=== PATIENT | male | born 1995 | race Caucasian/White ===

== ENCOUNTER 2023-12-23 07:52 | Day surgery (SDC) | payer OTHER, SELFPAY ==
[2023-12-23] VITALS (8 sets, daily range): BP systolic 89–126; BP diastolic 49–85; PULSE 48–64; RESP 12–18; TEMP 36.2–37.1; O2SAT 96–100
--- NOTE | 2023-12-23 | PATH_ITS ---
[facility] Accession Number: [id number] No. of containers..03 Tissue . 01 Material submitted: . PART A: small bowel - SMALL BOWEL PART B: gastrointestinal site - STOMACH PART C: colon - RANDOM BIOPSIES COLON . 01 Diagnosis: Part A: SMALL BOWEL: Small bowel mucosa with no diagnostic alterations. No active inflammation and no evidence of celiac disease. . Part B: STOMACH: Gastric mucosa with mild chronic inflammation. No Helicobacter organisms identified. No intestinal metaplasia, dysplasia, or malignancy identified. . Part C: RANDOM BIOPSIES COLON: Colonic mucosa with no diagnostic alterations. No active inflammation, granulomas, dysplasia, or malignancy identified. No evidence of colitis. [facility] 12/28/20231640 Local . 01 Electronically signed: . Raphael Louie MD, Pathologist NPI- [id number] . 01 Gross description: . A. Received in formalin with two patient identifiers and small bowel, are two bailey soft tissue fragments, 0.3 to 0.5 cm in greatest dimension. Submitted in A1. . B. Received in formalin with two patient identifiers and stomach, are three bailey soft tissue fragments, 0.3 to 0.4 cm in greatest dimension. Submitted in B1. . C. Received in formalin with two patient identifiers and random colon biopsies, are four bailey soft tissue fragments, 0.3 to 0.4 cm in greatest dimension. Submitted in C1. ([id number]) /MRV 12/28/20231640 Local . 01 Microscopic: . Part B: STOMACH: An immunohistochemical stain was performed to evaluate for Helicobacter organisms and is negative. The control stains appropriately. * This test was developed and its performance characteristics determined by [facility]. It has not been cleared or approved by the [place]. Food and Drug Administration. The FDA has determined that such clearance or approval is not necessary. This test is used for clinical purposes. It should not be regarded as investigational or for research. . 01 Pathologist provided ICD-10: K29.50 . 01 CPT . 937897, 484587, 631234, [id number] Specimen Comment: A courtesy copy of this report has been sent to [phone] Performed at: [address] [facility] [address], [place], [place] [id number] MD Raphael Louie MD Phone: [phone]
[2023-12-23] MEDS: LACTATED RINGERS 1,000 ML 42 ML IV (08:23)
--- NOTE | 2023-12-23 08:33 | PM.HP.1 ---
History of Present Illness History of Present Illness Chief complaint: EGD & Colonoscopy w/poss bx's Narrative: Diarrhea, abdominal discomfort, GE reflux PFSH Social History Smoking Status: Never smoker Meds Home Medications and Allergies Home Medications Medication Instructions Recorded Confirmed Type fluoxetine 40 mg capsule 40 mg PO DAILY 12/23/23 12/23/23 History omeprazole 20 mg capsule,delayed 20 mg PO BID 12/23/23 12/23/23 History release Allergies Allergy/AdvReac Type Severity Reaction Status Date / Time No Known Drug Allergies Allergy Verified 12/23/23 08:06 Exam Vital Signs (past 8 hours): - 12/23/23 08:05 Temperature 97.1 F L Pulse Rate 50 L Respiratory Rate 18 Blood Pressure 126/85 Pulse Oximetry 100 Oxygen Delivery Method Room Air Oxygen Delivery Method Room Air Narrative Exam Narrative: Oropharynx free of lesions Chest clear to auscultation percussion Cardiac exam reveals no S3 or murmur Assessment & Plan Assessment & Plan narrative: Diarrhea abdominal discomfort bloating and GE reflux. Need for EGD and colonoscopy for further diagnosis. Risks, benefits, alternatives have been explained. Time-Based Coding :: [TOTAL MINUTES] spent with patient and on the chart (including review of chart, obtaining history, exam, reviewing outside data, placing orders, documenting exam and treatment plan, and counseling patient) on [DATE].
--- NOTE | 2023-12-23 08:35 | PM.OP.EC ---
Operative Date/Time/Diagnoses Date of procedure: 12/23/23 Pre-op diagnosis: See indication and findings Procedure & Clinicians Study performed: EGD and colonoscopy Indications: Abdominal discomfort GE reflux and diarrhea Surgeon: Yaquelin Newberry Procedure Notes Procedure in detail: After informed consent was obtained the patient was placed in left lateral decubitus position. The video upper scope was placed into the oropharynx and with the patient's help swallowed into the esophagus. The esophagus stomach and duodenum were carefully examined. On withdrawal, retroflexed view the GE junction was performed. The scope was removed. The patient tolerated the procedure well. Patient was then turned in the colonoscope substituted. This was inserted into the rectum slowly advanced cecum. Preparation was good. On slow withdrawal mucosa was carefully examined. The scope was removed. The patient tolerated procedure well. Blood loss none Complications none Sedation mac Findings EGD 1. Normal esophagus with normal GE junction 2. Normal stomach biopsies taken to rule out Helicobacter 3. Normal duodenal bulb and sweep biopsies taken to rule out celiac Colonoscopy 1. Completely normal colonoscopy to cecum. Biopsies taken to rule out microscopic colitis Patient will follow up with Dr. Tran at least by telephone. We will be in touch regarding biopsy results.
== END 2023-12-23 10:16 | disposition home or self-care (01) ==
PROVIDERS: Referring Provider Internal Medicine Gastroenterology; Visit Provider Internal Medicine Gastroenterology
PROC: 0DJ08ZZ Inspection of Upper Intestinal Tract, Via Natural or Artificial Opening Endoscopic (ICD-10-PCS; CPT 43235; principal; 2023-12-23 08:30)
PROC: 0DJD8ZZ Inspection of Lower Intestinal Tract, Via Natural or Artificial Opening Endoscopic (ICD-10-PCS; CPT 45378; 2023-12-23 08:30)
DX: R19.7 Diarrhea, unspecified (principal); K21.9 Gastro-esophageal reflux disease without esophagitis; K29.50 Unspecified chronic gastritis without bleeding
CPT/HCPCS: 45380; 43239; J2250; J2405; J2704